=== PATIENT | female | born 1980 | race African-American/Black ===

== ENCOUNTER 2016-10-16 15:09 | Emergency (ER) ==
[2016-10-16 15:24] VITALS: BP 101/63
[2016-10-16] MEDS ORDERED: DECADRON IM ONE (15:42)
[2016-10-16] MEDS ORDERED: DUONEB (A & A) INH ONE (15:42)
--- NOTE | 2016-10-16 15:49 | PROVIDER DOCUMENTATION ---
HPI-Respiratory General <Erika DavidNaomi - Last Filed: 10/16/16 15:48> - General Source: patient - History of Present Illness-Resp Quality of Pain: reports: aching Severity in ED: reports: mild Onset/Duration: reports: gradual, 2 days ago, 3 days ago Timing: reports: still present, constant Context: reports: multiple patients with similar complaints Cough Quality/Degree: reports: mild, dry cough Modifying Factors: worse with: coughing Associated Symptoms: reports: cough, flu-like symptoms, headache, muscle/ bodyaches. denies: shortness of breath, short of breath, wheezing Similar Symptoms Previously?: No Recently seen or treated by another doctor?: No <Nura Barr - Last Filed: 10/16/16 16:01> - General Chief Complaint: Cold Symptoms Stated Complaint: FLU LIKE SX Time Seen by Provider: 10/16/16 15:37 Allergies/Adverse Reactions: Patient Allergies Allergy/AdvReac Type Severity Reaction Status Date / Time codeine Allergy Intermediate anxiety Verified 04/03/16 11:24 - History of Present Illness-Resp Nature of Presenting Problem: pt is a 36 y/o F that presents with cough, congestion, body aches, headache x a few days. denies n/v/d, back pain,or dysuria (Nura Barr) Review of Systems - Adult - REVIEW OF SYSTEMS - ADULT Constitutional: denies: chills, fever Eyes: denies: decreased vision, blurred vision, double vision Ears, Nose, Mouth & Throat: reports: sinus problem. denies: ear pain, throat pain Cardiovascular: denies: chest pain, palpitations Respiratory: reports: cough. denies: shortness of breath, wheezing Gastrointestinal: denies: abdominal pain, diarrhea, nausea, vomiting Musculoskeletal: reports: muscle aches. denies: frequent leg cramps Neurological: reports: headache/migraines. denies: dizziness/vertigo <Nura Barr - Last Filed: 10/16/16 16:01> Past History - Adult - PAST MEDICAL HISTORY-ADULT Major Childhood Illnesses: reports: denies history Cardiovascular: reports: denies history Respiratory: reports: denies history Gastrointestinal: reports: denies history Obstetrical/Gynecological: reports: denies history Genitourinary: reports: denies history Musculoskeletal: reports: denies history Neurological: reports: denies history Psychiatric: reports: anxiety Endocrine/Immune: reports: anemia Other Conditions: reports: denies history - PRIOR SURGERIES/PROCEDURES Surgical/Procedure History: reports: hysterectomy - PRIOR HOSPITALIZATIONS Prior Hospitalizations: reports: for other non-related - IMMUNIZATION STATUS Childhood Immunizations: See Nurse Assessment Flu Vaccine: See Nurse Assessment - FAMILY HISTORY Family History: reviewed, not pertinent <Erika David - Last Filed: 10/16/16 15:48> - PAST MEDICAL HISTORY-ADULT Review of Records: reports: Old Records Reviewed, Nursing Assessment Review, Medications Reviewed Psychiatric: reports: anxiety, psychiatric problems Endocrine/Immune: reports: anemia - PRIOR SURGERIES/PROCEDURES Surgical/Procedure History: reports: hysterectomy - IMMUNIZATION STATUS Childhood Immunizations: See Nurse Assessment Flu Vaccine: See Nurse Assessment - FAMILY HISTORY Family History: reviewed, not pertinent - SOCIAL HISTORY Smoking: non-smoker Living Situation: family <Nura Barr - Last Filed: 10/16/16 16:01> Physical Exam-General - PHYSICAL EXAM-ADULT Initial Vital Signs Reviewed: Yes - CONSTITUTIONAL General Appearance: alert, no apparent distress - EYES Eyes: PERRL/EOMI, pink conjunctivae - HEAD, EARS, NOSE, MOUTH & THROAT HENMT: normocephalic/atraumatic, moist mucous membranes, normal ENT inspection, TMs normal, pharynx normal - NECK Neck: full range of motion, normal inspection - RESPIRATORY Respiratory: lungs clear, normal breath sounds, no respiratory distress, no accessory muscle use - CARDIOVASCULAR Cardiovascular: regular rate, rhythm, no murmur - GASTROINTESTINAL (ABDOMEN) Abdominal Exam: normal bowel sounds, non tender, soft - MUSCULOSKELETAL Back Exam: no CVA tenderness, no vertebral tenderness Extremity: normal range of motion, non-tender, normal inspection - SKIN Integumentary: normal color, warm/dry - NEUROLOGIC Neurologic: grossly normal, no motor/sensory deficits - PSYCHIATRIC Psych/Mental Status: normal mood/affect, normal thought content, normal thought process, oriented x 3 <Nura Barr - Last Filed: 10/16/16 16:01> Progress <Erika David - Last Filed: 10/16/16 15:48> <Nura Barr - Last Filed: 10/16/16 16:01> - PLAN OF CARE/RESULTS Progress/Plan/Lab Results: Vital Signs Temp Pulse Resp BP Pulse Ox 10/16/16 15:23 99.1 F 86 18 101/63 100 codeine Allergy (Intermediate, Verified 04/03/16 11:24) anxiety Amoxicillin [Amoxil] 500 mg PO BID #20 capsule 09/29/16 Diclofenac Sodium 50 mg PO Q8-12H PRN PRN #30 tablet. 09/29/16 Famotidine [Pepcid] 20 mg PO DAILY #20 tablet 09/29/16 Laboratory 10/16/16 15:19 Influenza A (Rapid) NEGATIVE Influenza B (Rapid) NEGATIVE Orders Category Date Time Status Flu [INFLUENZA SCREEN PL] Stat Lab 10/16/16 15:19 Completed Albuterol 2.5MG/Ipratrop 0.5MG [Duoneb (A & A)] Med 10/16/16 15:42 Discontinued 3 ml INH NOW ONE Dexamethasone [Decadron] Med 10/16/16 15:42 Discontinued 4 mg IM NOW ONE Aerosol Treatments Routine Oth 10/16/16 15:42 Active Aerosol Treatments Stat Oth 10/16/16 15:42 Active (Erika David) Vital Signs Temp Pulse Resp BP Pulse Ox 10/16/16 15:23 99.1 F 86 18 101/63 100 codeine Allergy (Intermediate, Verified 04/03/16 11:24) anxiety Amoxicillin [Amoxil] 500 mg PO BID #20 capsule 09/29/16 Diclofenac Sodium 50 mg PO Q8-12H PRN PRN #30 tablet. 09/29/16 Famotidine [Pepcid] 20 mg PO DAILY #20 tablet 09/29/16 Azithromycin [Zithromax Z-Gerald] 250 mg PO DIRECTED #1 pkg 10/16/16 Prednisone [Deltasone] 20 mg PO DIRECTED #12 tablet 10/16/16 Laboratory 10/16/16 15:19 Influenza A (Rapid) NEGATIVE Influenza B (Rapid) NEGATIVE Orders Category Date Time Status Flu [INFLUENZA SCREEN PL] Stat Lab 10/16/16 15:19 Completed Albuterol 2.5MG/Ipratrop 0.5MG [Duoneb (A & A)] Med 10/16/16 15:42 Discontinued 3 ml INH NOW ONE Dexamethasone [Decadron] Med 10/16/16 15:42 Discontinued 4 mg IM NOW ONE Aerosol Treatments Routine Oth 10/16/16 15:42 Active Aerosol Treatments Stat Oth 10/16/16 15:42 Active (Nura Barr) Departure - Departure Time of Disposition Order: 15:48 Certified Medical Emergency: Emergent <Erika David - Last Filed: 10/16/16 15:48> <Nura Barr - Last Filed: 10/16/16 16:01> - Departure DIAGNOSIS: Bronchitis Disposition: HOME 01 Condition: Stable Additional Instructions: ED Follow Up Instructions: You have been treated by a care provider in the Emergency Department. These instructions are being provided to you so you can have an understanding of how to care for yourself upon discharge. Upon discharge from the Emergency Department, you are responsible for making arrangements for follow-up care by a physician of your choice. Take all prescribed medications as directed. Return to the Emergency Department immediately for any new or worsening symptoms. You may call the Physician Referral phone number at [phone] to obtain a list of Physicians who are taking new patients. Prescriptions: Prednisone [Deltasone] 20 mg PO DIRECTED #12 tablet Azithromycin [Zithromax Z-Gerald] 250 mg PO DIRECTED #1 pkg Referrals: None,PCP [Primary Care Provider] - Mariely Kang MD [STAFF PHYSICIAN] - Forms: Return to School/Parent Work Instructions: Prednisone tablets, Acute Bronchitis Attestation - Scribe Verification/Attestation Scribe:: Nura Barr Acting as Scribe for:: Erika aDvid Scribe documention review:: This chart was documented by a scribe and accurately reflects the service the provider performed and the decisions made by the provider. - Physician/ Mid-level Attestation Patient care was provided by Mid-level provider (POSTAL SUPERINTENDENT/PA):: Yes Mid-level provider:: Erika David Mid-level documentation review:: The Mid-level provider documentation, treatment plan and medical decision making was reviewed by the physician who agrees with all treatment and medical decision making by the [facility]. <Nura Barr - Last Filed: 10/16/16 16:01> Physician Attestation
== END 2016-10-16 16:37 | disposition home or self-care (01) ==
LOC: P.ED 15:09
DX: R05 Cough (principal); R09.81 Nasal congestion; M79.1 Myalgia; R51 Headache; Z79.899 Other long term (current) drug therapy
CPT/HCPCS: 87804; 94640; 96372; J1100